=== PATIENT | male | born 1990 | race Two or more races ===

== ENCOUNTER 2018-07-29 09:50 | Emergency (ER) | payer SELFPAY ==
[2018-07-29] MEDS ORDERED: Albuterol 0.083% 2.5 MG/3 ML Neb Soln NEB ONE (10:28)
--- NOTE | 2018-07-29 10:48 | EDM.PDOC ---
ED HPI GENERAL MEDICAL PROBLEM - General Chief Complaint: Respiratory Problem Stated Complaint: SOB BROUGHT OVER FROM CLINIC Time Seen by Provider: 07/29/18 10:39 Source of Information: Reports: Patient, RN Notes Reviewed - History of Present Illness INITIAL COMMENTS - FREE TEXT/NARRATIVE: 27-year-old male comes in with cough sore throat difficulty breathing worsening over the last several days. His been nonproductive. No fever or chills. He has had occasional asthma type problems in the past. He has used albuterol inhaler in the past but out to run out with no current refills. He states he is working here in the [employer] field, does not normally live here. Chest Pain Score (Numeric/FACES): 7 - Related Data Allergies Allergy/AdvReac Type Severity Reaction Status Date / Time Penicillins Allergy Rash Verified 07/29/18 09:58 Home Meds: Home Meds Albuterol [Ventolin HFA] 2 puff INH BID PRN 07/29/18 [History] Past Medical History Respiratory History: Reports: Asthma - Past Surgical History HEENT Surgical History: Reports: Other (See Below) Other HEENT Surgeries/Procedures: detnal extractions Social & Family History - Tobacco Use Smoking Status *Q: Current Every Day Smoker Years of Tobacco use: 12 Packs/Tins Daily: 0.2 - Caffeine Use Caffeine Use: Reports: Energy Drinks - Recreational Drug Use Recreational Drug Use: No ED ROS GENERAL - Review of Systems Review Of Systems: See Below Constitutional: Denies: Fever, Chills HEENT: Reports: Rhinitis, Throat Pain (Mild) Respiratory: Reports: Wheezing ( mild), Cough. Denies: Sputum (Mild/moderate ) Cardiovascular: Denies: Chest Pain GI/Abdominal: Denies: Abdominal Pain, Nausea, Vomiting Musculoskeletal: Reports: No Symptoms Skin: Reports: No Symptoms Neurological: Reports: No Symptoms ED EXAM, GENERAL - Physical Exam Exam: See Below General Appearance: Alert, Mild Distress Eye Exam: Bilateral Eye: PERRL Throat/Mouth: Normal Inspection, Normal Oropharynx Head: Atraumatic Neck: Supple, Full Range of Motion Respiratory/Chest: Respiratory Distress, Wheezing Cardiovascular: Regular Rate, Rhythm (Mild) Extremities: Normal Inspection, Normal Range of Motion Neurological: Alert, Oriented, No Motor/Sensory Deficits Skin Exam: Warm, Dry, Normal Color, No Rash Course - Vital Signs Last Recorded V/S: Last Vital Signs Temp 98.6 F 07/29/18 11:00 Pulse 78 07/29/18 11:00 Resp 16 07/29/18 11:00 BP 118/70 07/29/18 11:00 Pulse Ox 95 07/29/18 11:00 - Orders/Labs/Meds Orders: Active Orders 24 hr Category Date Time Status RT Aerosol Therapy [RC] ASDIRECTED Care 07/29/18 10:29 Active Meds: Medications Discontinued Medications Generic Name Dose Route Start Last Admin Trade Name Deirdre PRN Reason Stop Dose Admin Albuterol 2.5 mg 07/29/18 10:28 07/29/18 10:34 Proventil Neb Soln NEB 07/29/18 10:29 2.5 mg ONETIME ONE Administration Departure - Departure Time of Disposition: 10:47 Disposition: Home, Self-Care 01 Condition: Fair Clinical Impression: Wheezing Upper respiratory infection Qualifiers: URI type: unspecified viral URI Qualified Code(s): J06.9 - Acute upper respiratory infection, unspecified - Discharge Information Instructions: Upper Respiratory Infection, Adult, [id number] Referrals: PCP,Not In Area [Primary Care Provider] - Forms: ED Department Discharge, ED Return to Work/School Form Additional Instructions: Rest today, he may safely return to work tomorrow, Z-José antibiotic as prescribed, albuterol inhaler every 4-6 hours as needed for severe cough, or difficulty breathing. Clinic if not much better within 3-5 days as expected - My Orders Last 24 Hours: My Active Orders 07/29/18 10:29 RT Aerosol Therapy [RC] ASDIRECTED - Assessment/Plan Last 24 Hours: My Active Orders 07/29/18 10:29 RT Aerosol Therapy [RC] ASDIRECTED
== END 2018-07-29 11:00 | disposition home or self-care (01) ==
LOC: JD.ED 09:50
DX: J06.9 Acute upper respiratory infection, unspecified (principal); F17.210 Nicotine dependence, cigarettes, uncomplicated; R06.2 Wheezing; Z88.0 Allergy status to penicillin; Z79.899 Other long term (current) drug therapy
CPT/HCPCS: 94640; 99283; 99285-25